=== PATIENT | female | born 1995 | race Caucasian/White ===

== ENCOUNTER 2021-05-04 21:17 | Emergency (ER) | payer OTHER ==
[~2021-05-04] VITALS: Ht 170.2 cm; Wt 111.1 kg
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
--- NOTE | 2021-05-04 22:25 | NUR ---
US AT BED SIDE
[2021-05-04 22:31] LABS: THYROID STIMULATING HORMONE 0.505 uIU/mL (0.358-3.74)
[2021-05-04 23:22] VITALS: BP 113/70
--- NOTE | 2021-05-04 23:22 | NUR ---
PT IS MEDICALLY STABLE FOR D/C. Patient discharged to home in stable condition. Written and verbal after care instructions given. Patient verbalizes understanding of instruction.
== END 2021-05-04 23:24 | disposition home or self-care (01) ==
LOC: ER 21:29
DX: O03.9 Complete or unspecified spontaneous abortion without complication (principal); E03.9 Hypothyroidism, unspecified; Z98.890 Other specified postprocedural states
CPT/HCPCS: 36415; 76805-TC; 84439-TC; 84443-TC; 84702-TC